=== PATIENT | female | born 1960 | race Caucasian/White ===

== ENCOUNTER 2021-03-28 | Emergency (ER) | payer BC, OTHER ==
[~2021-03-28] VITALS: Ht 167.6 cm; Wt 80.0 kg
[~2021-03-28] MED LIST: ANXIETY PILL
[2021-03-28] MEDS ORDERED: SODIUM CHLORIDE 0.9% 1,000ML IVBOLUS ONE (00:30)
[2021-03-28] MEDS ORDERED: ONDANSETRON 2MG/ML, 2ML IVPush PRN (00:30)
--- NOTE | 2021-03-28 01:30 | NUR ---
Ice chips given as requested.
[2021-03-28 03:38] VITALS: BP 111/64
--- NOTE | 2021-03-28 03:53 | NUR ---
Pt sleeping on gurney, went home and will come back when pt is to be discharged.
--- NOTE | 2021-03-28 04:58 | NUR ---
Pt ambulated to restroom with steady gait, states she is ready to go home. Pt called her and he is on his way to pick pt up. ERMD aware, pt up for dc.
== END 2021-03-28 02:00 | disposition home or self-care (01) ==
LOC: ED 01:33
DX: R55 Syncope and collapse (principal); F12.10 Cannabis abuse, uncomplicated; F10.10 Alcohol abuse, uncomplicated; Y90.9 Presence of alcohol in blood, level not specified; R94.31 Abnormal electrocardiogram [ECG] [EKG]
CPT/HCPCS: 93005; 96360; 96361; 99285; J7030